=== PATIENT | female | born 1995 | race Caucasian/White ===

== ENCOUNTER 2016-10-12 23:48 | Emergency (ER) | payer OTHER ==
--- NOTE | ~2016-10-12 | CR63 ---
[facility] A Service of [facility] & [facility] RADIOLOGY TEXT RESULTS PATIENT: RIVAK CORDERO LOCATION: [facility] : 93 UNIT #: [id number] AGE: [address]: Annmarie Corbin MD SEX: F ORDER DR: [id number] [facility] [address] [facility]. [place], [place] [address] [id number] MR#: [id number] Acc #: [id number] NAME: RIVKA CORDERO : 1995 SEX: F STUDY DATE/TIME: 10/13/2016 1:19 UNIT: [facility] ROOM: STUDY DESCRIPTION: CR Chest 2 View Attending Physician: Annmarie Corbin M.D. Ordering Physician: Nikolas Jerez M.D. Primary Care Physician: Primary Care Physician No MEDICAL IMAGING REPORT This report is preliminary unless electronic signature is present EXAM Two-view chest INDICATIONS Chest pain for 1 day. FINDINGS 2 views of the chest compared to 05/31/2013. Heart and mediastinal contours are normal. Lungs are clear. No pleural effusion. IMPRESSION Negative chest radiograph. Dictated by... Rohan Crawley M.D. THIS IS AN ELECTRONICALLY VERIFIED REPORT Rohan Crawley M.D. at 10/13/2016 9:06 PM RPC/aaron TD: 10/13/2016 04:11 JOB #: [id number] MEDICAL IMAGING REPORT Page 1 of 1 COPY
[~2016-10-12 23:48] MED LIST: AMOXICILLIN500 M1 PO; AZO CRANBERRY450 M1; BACTRIM DS TABL1 TA1 PO; CIPRO PO; DEPO-PROVER150 MG/M1; DICLOFENAC PO; FLEXERIL PO; IBUPROFEN PO; IBUPROFEN800 MG PO; LORTAB 5/500 TA1 TA1 PO; NO MEDICATIONS; PYRIDIUM PO; PYRIDIUM100 MG PO; VOLTAREN75 MG PO
[2016-10-13 02:12] LABS: POC - CKMB 1.5 ng/mL (0.0-7.9); POC - TROPONIN <0.05 ng/mL (<=0.05)
[2016-10-13 02:13] LABS: BASOPHIL% 0.7 % (0-2.5); EOSINOPHIL# 0.1 X10e3 (0-0.7); EOSINOPHIL% 1.7 % (0.0-7.0); HEMATOCRIT 44.1 % (35.0-45.0); HEMOGLOBIN 15.1 gm/dL (12.0-16.0); LYMPHOCYTE# 2.2 X10e3 (1.0-3.5); LYMPHOCYTE% 35.1 % (17.0-45.0); MEAN CELL VOLUME 92.6 FL (83-96); MEAN CORPUSCULAR HEMOGLOBIN 31.6 PG (28-34); MEAN CORPUSCULAR HGB CONC 34.2 g/dL (30-36); MEAN PLATELET VOLUME 8.6 FL (6.5-11.5); MONOCYTE# 0.6 X10e3 (0-1.0); NEUTROPHIL# 3.3 X10e3 (1.5-7.1); NEUTROPHIL% 53.5 % (40-75); PLATELET COUNT 167 X10e3 (140-420); RED BLOOD COUNT 4.77 X10e (3.90-5.30); RED CELL DISTRIBUTION WIDTH 12.9 % (11.0-15.5); WHITE BLOOD COUNT 6.1 X10e3 (4.0-10.5)
[2016-10-13 02:14] LABS: DIFF IND NO
[2016-10-13 02:32] LABS: AMPHETAMINE POS (NEG); BARBITURATES NEG (NEG); BENZODIAZEPINES NEG (NEG); COCAINE NEG (NEG); MARIJUANA NEG (NEG); OPIATES POS (NEG); TRICYCLIC ANTIDEPRESSANTS NEG (NEG); U METHADONE NEG (NEG)
[2016-10-13 02:38] LABS: ALCOHOL BLOOD <5 mg/dL (0); BLOOD UREA NITROGEN 10 mg/dL (9-23); BUN/CREATININE RATIO 16.66; CALCIUM SERUM 9.4 mg/dL (8.4-10.2); CARBON DIOXIDE 28 mmol/L (22-31); CHLORIDE 103 mmol/L (100-111); CREATININE SERUM 0.6 mg/dL (0.6-1.4); GLOM FILT RATE Estimated 128.5 mL/min (>60); GLUCOSE FASTING 85 mg/dL (70-110); POTASSIUM 3.6 mmol/L (3.5-5.1); SODIUM 137 mmol/L (135-145)
== END 2016-10-13 07:40 | disposition home or self-care (01) ==
LOC: CED 23:48
PROVIDERS: Emergency Medicine
DX: F11.129 Opioid abuse with intoxication, unspecified (principal); S20.212A Contusion of left front wall of thorax, initial encounter; F17.200 Nicotine dependence, unspecified, uncomplicated; X58.XXXA Exposure to other specified factors, initial encounter; Y92.9 Unspecified place or not applicable
CPT/HCPCS: 71020; 80048; 80307; 82553; 84484; 84703; 85025; 99283; G0480

== ENCOUNTER 2017-01-04 01:25 | Inpatient (IN) | payer OTHER ==
[~2017-01-04] VITALS: Ht 162.6 cm; Wt 62.0 kg
--- NOTE | ~2017-01-04 | CO ---
Unit #: [id number] #: [id number] Patient: RIVKA CORDERO [id number] [facility] [address] [facility] [address]. [place], [place] [address] [id number] I MR#: [id number] NAME: RIVKA CORDERO ROOM: 241 Age: 21 Sex: F Admission Date: 01/04/2017 : 1995 Attending Physician: Mervat Javier M.D. Primary Care Physician: Primary Care Physician No Consultation Date: 01/10/2017 CONSULTATION REPORT REASON FOR CONSULTATION Followup. DISCUSSION Ms. Bahena is a 21-year-old female, seen in room 241, bed 1, on 01/10/2017 at [facility]. The patient dressed casually, lying comfortably in bed. The patient has a chest tube placed on Wednesday and reports that she is still having lot of pain and unable to sleep last night. The patient was, however, more cooperative. The patient has a sitter. The patient denied any suicidal or homicidal ideation. Denied any psychotic symptom. The patient's vital signs; temperature 98.4, pulse 78, respirations 18, blood pressure 116/69, oxygen saturation 99%. REVIEW OF SYSTEMS Complete review of systems unremarkable except as mentioned above. MENTAL STATUS EXAMINATION General appearance; the patient dressed casually, lying comfortably in bed, seemed somewhat anxious, in pain. Attention span and concentration, fair. Speech, regular rate and coherent. Oriented in time, place, and person. Mood and affect were sad, dysphoric, anxious, but able to smile. Thought process, coherent. Thought content, the patient denied any thoughts of harming self or others or any psychotic symptom. Recent and remote memory, fair. Language, intact. Fund of knowledge, fair. Insight and judgment, fair to slightly impaired. DIAGNOSES Psychiatric: Opioid use disorder, severe, F11.20; amphetamine use disorder, severe, F15.20; major depressive disorder, recurrent, severe, F33.2. ASSESSMENT AND PLAN 1. Supportive psychotherapy and psychoeducation provided to the patient. 2. Educated about benefits and side effects of medication and course and prognosis of illness. 3. Advised to continue with current combination of medication. If needed, we will make further adjustment. Please feel free to call if any question, telephone #[phone]. Dictated by... David Rubin M.D. Unit #: [id number] #: [id number] Patient: RIVKA CORDERO YUE/shantel TD: 01/10/2017 23:03 JOB #: [id number] CONSULTATION REPORT Page 1 of 1 X David Rubin MD CONSULTATION REPORT
--- NOTE | ~2017-01-04 | HP ---
Unit #: [id number] #: [id number] Patient: RIVKA CORDERO [id number] [address] [place], [place] [address] [id number] I MR#: [id number] NAME: RIVKA CORDERO ROOM: 46 Age: 21 Sex: F Admission Date: 01/04/2017 : 1995 Attending Physician: Samira Brennan M.D. Primary Care Physician: No Primary Care Physician HISTORY AND PHYSICAL CHIEF COMPLAINT Back pain. HISTORY OF PRESENT ILLNESS 21-year-old with a history of IV drug abuse, admitted because of back pain. Mostly, the back pain is in the right lower area in the back. It started a few weeks prior to admission but suddenly got worse since yesterday, one day prior to the admission, according to her. Patient is a very poor historian, noncooperative. Most of the history taken from her grandmother who is at bedside and also from ER physician chart. No injury. Pain gets worse with deep breathing. No fever, no vomiting, no pain during urination. She did admit that she is using IV heroin. Last usage was one day prior to the admission. PAST MEDICAL HISTORY Frequent urinary tract infections. ALLERGIES None. MEDICATIONS None. SOCIAL HISTORY Smokes one pack of cigarettes per day. Uses IV heroin and meth. No alcohol. FAMILY HISTORY Positive for hypertension. PAST SURGICAL HISTORY None. REVIEW OF SYSTEMS No sore throat, no chest pain, no cough, no shortness of breath. Patient is very noncooperative. Tried to ask her other systems but she is noncooperative. PHYSICAL EXAMINATION Please note - patient is noncooperative. HEENT: Dry mucosa present. No pallor, no icterus. NECK: Supple. HEART: S1, S2 heard. Tachycardia present. LUNGS: Clear to auscultation. Unit #: [id number] #: [id number] Patient: RIVKA CORDERO ABDOMEN: Soft. Tender in the right flank area. Voluntary guarding present. EXTREMITIES: No pedal edema. SKIN: No rash. She did not cooperate for me to check skin for any IV tracks. NEUROLOGICAL: Noncooperative but moving all extremities. Nonfocal. DIAGNOSTIC STUDIES LABORATORY DATA: Urinalysis shows WBC 100-200, 4+ bacteria, 2+ leukocyte esterase. Urine drug screen positive for amphetamines and opiates. WBC 10.2, hemoglobin 13.2, platelets 166, sodium 137, potassium 4.2, creatinine 0.9. AST 102, ALT 174, alkaline phosphatase 90, total bilirubin 0.9, INR 1.0, lactic acid 1.1. IMAGING: CT angio of chest shows no aortic dissection. Nondiagnostic for evaluation for PE. Trace right pleural effusion present. Dense consolidation in right lower lobe which is multifocal, probably pneumonia versus septic emboli. ASSESSMENT AND PLAN 21-year-old admitted because of back pain: 1. Sepsis, likely from pyelonephritis and urinary tract infection present on admission: Started on IV antibiotics. Blood cultures. Will repeat lactic acid. Please note that patient is refusing to draw any kind of blood. 2. Urinary tract infection with acute pyelonephritis: Infectious disease has been contacted. Continue with urine cultures, blood cultures, IV antibiotics. 3. Transaminitis, most likely from the IV drug abuse: Check acute hepatitis panel and HIV panel. 4. Multifocal pneumonia versus septic emboli, mostly on the right lower lobe. Continue with IV antibiotics and send sputum cultures. 5. Polysubstance abuse with IV drug abuse with IV heroin and meth: Advised to quit. 6. Patient might need a CHASITY. I am going to ask cardiology to see. Await for blood cultures. Bilateral SCDs for DVT prophylaxis. Protonix 40 p.o. daily for GI prophylaxis. Dictated by Iglesia Webb/delon TD: 01/04/2017 11:33 JOB #: [id number] Unit #: [id number] #: [id number] Patient: CORDERO,RIVKA HISTORY AND PHYSICAL Page 1 of 1 X Samira Brennan MD X HISTORY AND PHYSICAL
--- NOTE | ~2017-01-04 | CR72 ---
[facility] A Service of [facility] & [facility] RADIOLOGY TEXT RESULTS PATIENT: RIVKA CORDERO LOCATION: C2A 241-01 : [birth year] UNIT #: [id number] AGE: [address]: Mervat Javier MD SEX: F ORDER DR: [id number] [facility] [address] [place], [place] [address] [id number] I MR#: [id number] Acc #: [id number] NAME: RIVKA CORDERO : 1995 SEX: F STUDY DATE/TIME: 01/15/2017 6:00 UNIT: [facility] ROOM: [facility] STUDY DESCRIPTION: CR Chest Single View Portable Attending Physician: Mervat Javier M.D. Ordering Physician: Mervat Javier M.D. Primary Care Physician: No Primary Care Physician MEDICAL IMAGING REPORT This report is preliminary unless electronic signature is present EXAM Single view chest INDICATIONS Shortness of air. Right chest tube placement. COMPARISON STUDIES Single portable AP view chest compared 01/14/2017. FINDINGS Small right pneumothorax is unchanged. There is a right IJ central line. Heart mediastinal contours normal. Minimal linear airspace opacity near the pneumothorax is unchanged. IMPRESSION Small right basilar pneumothorax is unchanged Dictated by... Rohan Crawley M.D. THIS IS AN ELECTRONICALLY VERIFIED REPORT Rohan Crawley M.D. at 01/15/2017 2:52 PM OZZIE/marleny TD: 01/15/2017 14:42 JOB #: [id number] MEDICAL IMAGING REPORT Page 1 of 1 COPY
--- NOTE | ~2017-01-04 | CR72 ---
[facility] A Service of [facility] RADIOLOGY TEXT RESULTS PATIENT: RIVKA CORDERO LOCATION: A 241-01 : [birth year] UNIT #: [id number] AGE: [address]: Samira Brennan MD SEX: F ORDER DR: [id number] [facility] [address] [facility]. [place], [place] [address] [id number] I MR#: [id number] Acc #: [id number] NAME: RIVKA CORDERO : 1995 SEX: F STUDY DATE/TIME: 01/10/2017 4:03 UNIT: [facility] ROOM: [facility] STUDY DESCRIPTION: CR Chest Single View Portable Attending Physician: Samira Brennan M.D. Ordering Physician: Tammi Duarte A.P.R.N. Primary Care Physician: Primary Care Physician No MEDICAL IMAGING REPORT This report is preliminary unless electronic signature is present EXAM Chest x-ray, 01/10/2017 HISTORY Chest tube. Followup pleural effusion. TECHNIQUE AP portable chest x-ray. FINDINGS Chest tube remains in place in the peripheral right lung base. Right pleural effusion has decreased significantly in size since yesterday, although a small pneumothorax component is now visible along the lateral aspect of the right mid and lower lung. There is persistent right lung base volume loss with elevation of the right hemidiaphragm and plate-like right basilar atelectasis. Probable tiny left pleural effusion. Lungs otherwise clear. Right IJ central line tip in the low SVC. Heart size normal. IMPRESSION 1. Decreased right pleural effusion with newly visible small pneumothorax component as noted. Right basilar chest tube remains in place. 2. Right lung volume loss with elevation right hemidiaphragm. Dictated by... Jw Suarez M.D. THIS IS AN ELECTRONICALLY VERIFIED REPORT Jw Suarez M.D. at 01/10/2017 9:53 PM Monet TD: 01/10/2017 10:04 [facility] A Service of [facility] RADIOLOGY TEXT RESULTS PATIENT: RIVKA CORDERO LOCATION: [facility] 241-01 : [birth year] UNIT #: [id number] AGE: [address]: Samira Brennan MD SEX: F ORDER DR: JOB #: [id number] MEDICAL IMAGING REPORT Page 1 of 1 COPY
--- NOTE | ~2017-01-04 | CO ---
Unit #: [id number] #: [id number] Patient: RIVKA CORDERO [id number] [facility] [address] [facility] [address] [facility]. [place], [place] [address] [id number] I MR#: [id number] NAME: RIVKA CORDERO ROOM: 241 Age: 21 Sex: F Admission Date: 01/04/2017 : 1995 Attending Physician: Mervat Javier M.D. Primary Care Physician: Primary Care Physician No Consultation Date: 01/12/2017 CONSULTATION REPORT REASON FOR CONSULTATION Followup. DISCUSSION Ms. Bahena is a 21-year-old female, seen in room 241, bed 1, on 01/12/[address] [facility]. The patient has a right chest tube receiving IV fluids. Reported having lot of pain. Sad, depressed, withdrawn. The patient's one-to-one monitoring was discontinued. The patient reports medication is helping her, but still having lot of above-mentioned symptom, but denied any suicidal or homicidal ideation. Denied any psychotic symptom. The patient's vital signs are stable. REVIEW OF SYSTEMS Complete review of systems is unremarkable. MENTAL STATUS EXAMINATION General appearance, the patient dressed in hospital attire. Attention span and concentration, fair. Speech, slow in volume. Oriented in place and person. Mood and affect, sad, and depressed. Thought process, coherent. Thought content, the patient denied any thoughts of harming self or others or any hallucination. Recent and remote memory, fair. Language, intact. Fund of knowledge, fair. Insight and judgment, fair to slightly impaired. DIAGNOSES Psychiatric: Opioid use disorder, severe, F11.20; amphetamine use disorder, severe, F15.20; major depressive disorder, recurrent, severe, F33.2. ASSESSMENT AND PLAN 1. Supportive psychotherapy and psychoeducation provided to the patient. 2. Educated about benefits and side effects of medication and course and prognosis of illness. 3. Advised to continue with current medication. If needed, consider further adjustment of medication. Please feel free to call if any questions, telephone #[phone]. Dictated by... David Rubin M.D. YUE/shantel Unit #: [id number] #: [id number] Patient: RIVKA CORDERO TD: 01/12/2017 18:13 JOB #: [id number] CONSULTATION REPORT Page 1 of 1 X David Rubin MD CONSULTATION REPORT
--- NOTE | ~2017-01-04 | CO ---
Unit #: [id number] #: [id number] Patient: RIVKA CORDERO 198856 [facility] [address] [place], [place] [address] [id number] I MR#: [id number] NAME: RIVKA CORDERO ROOM: 241 Age: 21 Sex: F Admission Date: 01/04/2017 : 1995 Attending Physician: Samira Brennan M.D. Primary Care Physician: Primary Care Physician No Consultation Date: 01/07/2017 CONSULTATION REPORT REASON FOR CONSULTATION Followup. DISCUSSION Ms. Bahena is a 21-year-old female, seen in room 241, bed 1 on 01/07/2017 at [facility]. The patient was compliant, cooperative. Mood is sad, dysphoric, flat affect. The patient reports that she does not like to have a sitter. The patient apparently used drugs while she was in ICU, subsequently sitter was placed for precautions. The patient was using medication on her own. The patient's vital signs; temperature 98.4, pulse 74, respirations 17, blood pressure 114/74, oxygen saturation 96%. Reports medication is helping her. The patient reports that currently waiting for ID final result. The patient's echo showed no endocarditis. worker's compensation claims examiner is currently working on plan to return home with her mother unless the patient is agreeable to drug rehab program. The patient currently denied any suicidal or homicidal ideation. Denied any psychotic symptom. REVIEW OF SYSTEMS Complete review of systems unremarkable except as mentioned above. MENTAL STATUS EXAMINATION Vital signs; please see above. General appearance; the patient is dressed casually in the hospital attire. Attention span and concentration, fair. Speech, regular rate. Attention span and concentration, fair. Oriented in time, place, and person. Mood and affect, sad, and depressed. Thought process was coherent. Thought content, the patient denied any thoughts of harming self or others or any psychotic symptom. Language, intact. Fund of knowledge, fair. Insight and judgment, fair to slightly impaired. DIAGNOSES Psychiatric: Opioid use disorder, severe, F11.20; amphetamine use disorder, severe, F15.20; major depressive disorder, recurrent, severe, F33.2. ASSESSMENT/PLAN 1. Supportive psychotherapy and psychoeducation were provided to the patient. 2. Educated about benefits and side effects of medication and course and prognosis of illness. 3. Advised to continue with current combination of medication and make further adjustment of medication if needed. Continue with the sitter at this time for safety because of the patient's above-mentioned behavior. Unit #: [id number] #: [id number] Patient: RIVKA CORDERO Dictated by... Iglesia Mcdonald/shantel TD: 01/08/2017 00:10 JOB #: [id number] CONSULTATION REPORT Page 1 of 1 X David Rubin MD X CONSULTATION REPORT
--- NOTE | ~2017-01-04 | OR ---
Unit #: [id number] #: [id number] Patient: RIVKA CORDERO [id number] [address] [address] [id number] I MR#: [id number] NAME: RIVKA CORDERO ROOM: [facility] Date of Procedure: 01/08/2017 Admission Date: 01/04/2017 Surgeon: Rafal English M.D. : 1995 Attending Physician: Samira Brennan M.D. OPERATIVE REPORT PREOPERATIVE DIAGNOSIS Right pleural effusion. POSTOPERATIVE DIAGNOSIS Right pleural effusion. PROCEDURE PERFORMED Insertion of a #28 trocar right chest tube. ANESTHESIA Local 1% Xylocaine. ESTIMATED BLOOD LOSS About 3 mL. COMPLICATIONS None. DESCRIPTION OF PROCEDURE The patient was left in her hospital bed and placed in a left lateral decubitus position. The right lateral chest was prepped with ChloraPrep and draped in a sterile fashion. After adequate anesthesia had been obtained using local 1% Xylocaine, a small transverse skin incision was made just slightly below the sixth intercostal space. A Tonsil clamp was used to spread the subcutaneous tissue and muscle and fascial layers with the right pleural space being entered. A #28 trocar chest tube was then passed along this tract into the pleural space. The chest tube was secured in place using 2-0 silk suture. Some of the fluid that was drained was sent for cytology as well as cultures. The fluid had a somewhat cloudy appearance. The chest tube was then connected to a Pleur-evac. A cut 4x4 was placed around the chest tube and it was secured in place with 2-inch silk tape. Estimated blood loss in the procedure was about 3 mL. Sponge and needle counts in the operation were correct. The patient tolerated the procedure well. Dictated by... Rafal English M.D. RGB/modl Unit #: [id number] #: [id number] Patient: RIVKA CORDERO TD: 01/09/2017 00:16 JOB #: [id number] OPERATIVE REPORT Page 1 of 1 X Rafal English MD X PROCEDURE OPERATIVE NOTE
--- NOTE | ~2017-01-04 | CO ---
Unit #: [id number] #: [id number] Patient: RIVKA CORDERO [id number] [facility] [address] [facility] [address] [facility]. [place], [place] [address] [id number] I MR#: [id number] NAME: RIVKA CORDERO ROOM: 241 Age: 21 Sex: F Admission Date: 01/04/2017 : 1995 Attending Physician: Mervat Javier M.D. Consultation Date: 01/13/2017 CONSULTATION REPORT REASON FOR CONSULTATION Followup. DISCUSSION Ms. Shruti Cordero is a 21-year-old female, seen in room 241 bed 1 on 01/13/2017 at [facility]. The patient was lying comfortably in bed, reported still in pain, reported mood is better. The patient dressed casually in hospital attire, lying in a propped up position. The patient was able to answer question coherently. Denied any suicidal or homicidal ideation. Denied any psychotic symptom. Vital signs; temperature 98.7, pulse 113, respirations 15, blood pressure 91/49, and oxygen saturation 100%. REVIEW OF SYSTEMS Complete review of systems unremarkable. MENTAL STATUS EXAMINATION General appearance; the patient dressed casually, lying comfortably in bed. Attention span and concentration, fair. Speech, regular rate and coherent. Oriented in time, place, and person. Mood and affect, labile, but able to smile. Thought process, coherent. Thought content, the patient denied any thoughts of harming self or others. Recent and remote memory, fair. Language, intact. Fund of knowledge, fair. Insight and judgment, fair to slightly impaired. DIAGNOSES Psychiatric: Opioid use disorder, severe, F11.20; major depressive disorder, recurrent, severe, F33.2. ASSESSMENT/PLAN 1. Supportive psychotherapy and psychoeducation provided to the patient. 2. Educated about benefits and side effects of medication and course and prognosis of illness. 3. Advised to continue with current medication. If needed, consider further adjustment of medication. Please feel free to call if any questions telephone #[phone]. Dictated by... David Rubin M.D. YUE/shantel TD: 01/13/2017 23:06 Unit #: [id number] #: [id number] Patient: RIVKA CORDERO JOB #: [id number] CONSULTATION REPORT Page 1 of 1 X David Rubin MD CONSULTATION REPORT
--- NOTE | ~2017-01-04 | CR72 ---
[facility] A Service of [facility] RADIOLOGY TEXT RESULTS PATIENT: RIVKA CORDERO LOCATION: [facility] : [birth year] UNIT #: [id number] AGE: [address]: Samira Brennan MD SEX: F ORDER DR: [id number] [facility] [address] [facility]. [place], [place] [address] [id number] I MR#: [id number] Acc #: [id number] NAME: RIVKA CORDERO : 1995 SEX: F STUDY DATE/TIME: 01/09/2017 4:23 UNIT: [facility] ROOM: [facility] STUDY DESCRIPTION: CR Chest Single View Portable Attending Physician: Samira Brennan M.D. Ordering Physician: Rafal English M.D. Primary Care Physician: No Primary Care Physician MEDICAL IMAGING REPORT This report is preliminary unless electronic signature is present EXAM Chest x-ray, 01/09/2017. HISTORY Chest tube placement. Pleural effusion. Follow up exam. TECHNIQUE AP portable chest x-ray. FINDINGS Chest tube tip is in the peripheral right lung base. Moderately large and loculated right pleural effusion has not changed significantly in size since yesterday, but associated loculated pleural air has clearly decreased. Dense airspace consolidation and volume loss in the right lower lung. Right upper lung and left lung are clear. Heart size normal. Right IJ central line tip in the low SVC. IMPRESSION Decreasing extrapulmonary air following chest tube placement. Persistent loculated large right pleural effusion. Chest tube tip is in the peripheral right lung base. Dictated by... Jw Suarez M.D. THIS IS AN ELECTRONICALLY VERIFIED REPORT Jw Suarez M.D. at 01/09/2017 3:54 PM RGW/vadimw TD: 01/09/2017 12:50 JOB #: [id number] [facility] A Service of [facility] RADIOLOGY TEXT RESULTS PATIENT: RIVKA CORDERO LOCATION: [place] [address]-01 : [birth year] UNIT #: [id number] AGE: [address]: Samira Brennan MD SEX: F ORDER DR: MEDICAL IMAGING REPORT Page 1 of 1 COPY
--- NOTE | ~2017-01-04 | CO ---
Unit #: [id number] #: [id number] Patient: RIVKA CORDERO [id number] [facility] [address] [facility]. [place], [place] [address] [id number] I MR#: [id number] NAME: RIVKA CORDERO ROOM: 241 Age: 21 Sex: F Admission Date: 01/04/2017 : 1995 Attending Physician: Mervat Javier M.D. Primary Care Physician: Primary Care Physician No Consultation Date: 01/11/2017 CONSULTATION REPORT DISCUSSION Ms. Shruti Cordero is a 21-year-old female, seen on 01/11/2017 in room 241 bed 1 on 01/11/2017 at [facility]. The patient has a sitter, compliant and cooperative. Reports still having trouble sleep and pain. The patient has a chest tube placed recently. The patient's vital signs; temperature 98.7, pulse 93, respirations 16, blood pressure 115/64, and oxygen saturation 99%. The patient currently denied any suicidal or homicidal ideation. Reports medication helping, but still having trouble with sleep and pain. REVIEW OF SYSTEMS Complete review of systems unremarkable. MENTAL STATUS EXAMINATION General appearance, the patient dressed casually. Attention span and concentration, fair. Oriented in time, place, and person. Mood and affect; sad, dysphoric, labile. Thought process was coherent. Thought content, the patient denied any thoughts of harming self or others. Recent and remote memory, fair. Language, intact. Fund of knowledge, fair. Insight and judgment, fair to slightly impaired. DIAGNOSES Psychiatric: Opioid use disorder, severe, F11.20; amphetamine use disorder, severe, F15.20; major depressive disorder, recurrent, severe, F33.2. ASSESSMENT AND PLAN 1. Supportive psychotherapy and psychoeducation provided to the patient. 2. Educated about benefits and side effects of medication and course and prognosis of illness. 3. Advised to continue with current combination of medication. If needed, consider further adjustment of medication. Dictated by... David Rubin M.D. YUE/shantel TD: 01/11/2017 18:00 JOB #: [id number] Unit #: [id number] #: [id number] Patient: RIVKA CORDERO CONSULTATION REPORT Page 1 of 1 X David Rubin MD CONSULTATION REPORT
--- NOTE | ~2017-01-04 | CR72 ---
[facility] A Service of [facility] RADIOLOGY TEXT RESULTS PATIENT: RIVKA CORDERO LOCATION: C2A 241-01 : [birth year] UNIT #: [id number] AGE: [address]: Mervat Javier MD SEX: F ORDER DR: [id number] [facility] [address] [place], [place] [address] [id number] I MR#: [id number] Acc #: [id number] NAME: RIVKA CORDERO : 1995 SEX: F STUDY DATE/TIME: 01/14/2017 13:21 UNIT: A ROOM: 241 STUDY DESCRIPTION: CR Chest Single View Portable Attending Physician: Mervat Javier M.D. Ordering Physician: Mervat Javier M.D. Primary Care Physician: No Primary Care Physician MEDICAL IMAGING REPORT This report is preliminary unless electronic signature is present EXAM Chest, portable; 01/14/2017, 1321 hours. CLINICAL HISTORY Shortness of air, right chest tube removed today. FINDINGS Portable upright chest demonstrates right IJ catheter tip in the right atrium unchanged. The right lateral basal chest tube has been removed. There is a stable small right lateral basal pneumothorax with linear atelectasis or scar at the right base. IMPRESSION 1. Interval removal of right chest tube with stable right lateral basal pneumothorax and linear right basilar density. 2. Lungs are otherwise clear. 3. Stable right IJ catheter with tip in right atrium. Dictated by... Ximena Jameson M.D. THIS IS AN ELECTRONICALLY VERIFIED REPORT Ximena Jameson M.D. at 01/15/2017 9:08 AM KERVIN/domenic TD: 01/14/2017 18:05 JOB #: [id number] MEDICAL IMAGING REPORT Page 1 of 1 COPY
--- NOTE | ~2017-01-04 | TOC ---
Unit #: [id number] #: [id number] Patient: RIVKA CORDERO [id number] [address] [place], [place] [address] [id number] I MR#: [id number] NAME: RIVKA CORDERO ROOM: 241 Age: 21 Sex: F Admission Date: 01/04/2017 : 1995 Attending Physician: Samira Brennan M.D. Primary Care Physician: No Primary Care Physician TRANSFER OF CARE SUMMARY DISCHARGE DIAGNOSES 1. Severe sepsis. 2. Right lower lobe pneumonia. 3. Right-sided ysxjnnvd-jp-sgcizo loculated pleural effusion, currently having chest tube. 4. Escherichia coli urinary tract infection. 5. Hepatitis C positive on acute hepatitis panel. 6. Anemia, likely iron deficiency. 7. Severe protein malnutrition. 8. Hypokalemia. 9. Hypocalcemia. 10. Acute pyelonephritis. 11. Opiate use disorder, severe. 12. Amphetamine usage. 13. Major depression. CONSULTATIONS 1. Dr. English. 2. Dr. Rubin. 3. Dr. Flory Novoa. PROCEDURES The patient had insertion of right chest tube on January 08, 2017. DIAGNOSTIC TESTING IMAGING: Chest x-ray shows decreasing extrapulmonary air following the chest tube. Persistent loculated large right pleural effusion present. CT of the abdomen and pelvis shows moderate sized right pleural effusion. CURRENT LAB DATA: Blood cultures negative. Acute hepatitis panel shows hepatitis C. Sodium 140, potassium 3.3, creatinine 0.8. WBC 5.7, hemoglobin 10.2, platelets 226. Urine culture is growing E-coli. HOSPITALIZATION COURSE A 21 year old admitted because of back pain. Sepsis likely from acute pyelonephritis, E-coli urinary tract infection. The patient received IV antibiotics. Currently antibiotics have been adjusted by infectious disease. Continue antibiotics per them. Right-sided pneumonia with moderate loculated pleural effusion. Currently having chest tube. Dr. English is closely following. Unit #: [id number] #: [id number] Patient: RIVKA CORDERO Hepatitis C with transaminitis. Hepatitis C positive. Polysubstance abuse with IV heroin usage and methamphetamine usage. Major depression. Jnotdglz-ya-ndxzkj protein malnutrition. 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 Anemia. Likely iron deficiency. Electrolyte imbalance. Replaced per protocol. Continue monitoring chest tube. Treatment as per Dr. English. Dictated by... Iglesia Webb TD: 01/10/2017 15:01 JOB #: [id number] TRANSFER OF CARE SUMMARY Page 1 of 1 X Samira Brennan MD TRANSFER OF CARE SUMMARY
--- NOTE | ~2017-01-04 | CO ---
Unit #: [id number] #: [id number] Patient: RIVKA CORDERO [id number] [facility] [address]. [place], [place] [address] [id number] I MR#: [id number] NAME: RIVKA CORDERO ROOM: 241 Age: 21 Sex: F Admission Date: 01/04/2017 : 1995 Attending Physician: Samira Brennan M.D. Primary Care Physician: No Primary Care Physician Consultation Date: 01/08/2017 CONSULTATION REPORT REASON FOR CONSULT Loculated right pleural effusion. HISTORY OF PRESENT ILLNESS Ms. Rivka Cordero is a 21-year-old female who presented to [facility] on 01/04/17 with complaint of right flank pain rated a 10 out of 0 to 10 scale. She was found to have E-coli in her urine, as well as a right pneumonia that was evolving into a loculated right pleural effusion. A CT of the chest on 01/04/17 revealed the above. She underwent a CAT scan of the abdomen and pelvis on 01/06/17, which showed an increase in the pleural effusion with consolidation of the right lower lobe and atelectasis. She complained of a nonproductive cough for approximately 3 days. She had a temperature of 98.8. She denied night sweats, weight loss or shortness of air. Since she has been at [facility], she was maintained on antibiotic therapy. She is a known IV drug user with heroin and meth with her last use approximately 5 days ago. She was initially in the intensive care unit and was caught attempting to use methamphetamine in the ICU. She was then put in room 241 at that point with a sitter. On interview, she is angry, and she wants to go outside unattended, and primary team has restricted her activity, which is appropriate. Dr. Rubin of psychiatric service is at the bedside evaluating the patient, as well. PAST MEDICAL HISTORY She has IV drug use with meth and heroin. She has no other past medical history, to include no coronary artery disease, no DVT or PE. She denies any stroke, COPD, asthma or any childhood illness. PAST SURGICAL HISTORY She denies any past surgeries. SOCIAL HISTORY She smokes 1 pack of cigarettes per day and has for 12 years. She has used IV drugs for approximately 4 years, and she lives with family. REVIEW OF SYSTEMS Positive for the above-mentioned symptoms in HPI, and a 14-point review has been completed. PHYSICAL EXAMINATION Unit #: [id number] #: [id number] Patient: RIVKA CORDERO VITAL SIGNS: Her temperature is 98.8. Her heart rate is 84. Her respiratory rate is 20. Her blood pressure is 115/33. GENERAL APPEARANCE: She is a well-groomed 21-year-old female, well nourished, who is a good historian regarding her own medical history. NEUROLOGIC/PSYCHIATRIC: Cranial nerves II-XII are intact. Her speech is appropriate and clear. She is angry and wants to leave. HEENT: Normocephalic. No facial asymmetry. Sclera anicteric. NECK: Her neck is supple. Trachea midline. She has a right IJ catheter, central line in place without any inflammation or fluctuance. RESPIRATORY: Her lungs are decreased in the bases bilaterally with a few rhonchi. CARDIOVASCULAR: S1, S2 without rub, without murmur. No S3, S4. No peripheral edema. ABDOMEN: Her abdomen is round, soft. Bowel sounds positive. Nontender. No pulsatile masses or hepatosplenomegaly. EXTREMITIES: Extremities are warm and pink. No edema. No ulcers. She has multiple tattoos. DIAGNOSTICS CARDIOVASCULAR: She had an echocardiogram, which showed no evidence of vegetation. LABORATORY: BUN 6, creatinine 0.7, sodium 142, potassium 4. Hemoglobin was 11.4, hematocrit 34.2, WBC 7.7, platelets 200. IMAGING: CT of the chest, CT of the abdomen and pelvis both reviewed by Dr. English at the bedside. IMPRESSION 1. Right partially loculated pleural effusion. 2. Right lung consolidation. 3. E-coli in the urine, on antibiotic therapy. 4. IV drug use, heroin/meth. Last use approximately [address] English placed a No. 28 chest tube in the right pleural space. He had approximately 50 mL of fluid return, which was sent for cytology and bacterial AFB and fungal cultures. Additionally, the patient is to have Toradol 15 mg IV q.6 hours x24 hours. We discontinued her Hiltons. We discontinued her IV morphine. She has a morphine GROUP MANAGING DIRECTOR pump now. Lidoderm patch. We have discontinued her ibuprofen. We are giving her oxycodone 5 mg 1 or 2 tablets q.4 hours. A chest x-ray for tomorrow morning on January 09, 2017. Dictated by... Tammi Duarte A.P.R.N. for Iglesia Crowe/justyna TD: 01/09/2017 13:55 JOB #: [id number] Unit #: [id number] #: [id number] Patient: CONSUELORIVKA CONSULTATION REPORT Page 1 of 1 X Tammi Duarte APRN X CONSULTATION REPORT
--- NOTE | ~2017-01-04 | A ---
[facility] Nutrition Therapy DATE: 01/11/17 Patient: RIVKA CORDERO Physician: ALEX Address: [facility] Room/Bed: [address] [place] [address], Zip: [place] [address] Admit Date: 01/04/17 Date of : [birth year] Height: 5 4 Weight: 136 62 NUTRITIONAL ASSESSMENT: REASON: CONSULT RECEIVED PT IS 21 Y.O. FEMALE ADMITTED FOR BACK AND FLANK PAIN, PNA PMH: IV DRUG ABUSE, FREQUENT UTIs, DEPRESSION, POLYSUBSTANCE ABUSE, 1 PPD SMOKER Anthropometrics: 5'4", WT: 125# (56.8 KG), BMI: 21.5 Labs: BUN: 5, ALB: 2.2 Meds: KCL, NACL, THERAPEUTIC FORMULA, PROTONIX I/O & Bowel function: 4250/3819 Skin Integrity: NO KNOWN SKIN ISSUES Estimated Nutrition Needs: INCREASED NEEDS 2' CURRENT CLINICAL CONDITION Assessment: CHART REVIEWED AND EVENTS NOTED. PT SEEN FOR MD CONSULT. PT IS S/P CHEST TUBE PLACEMENT 2' PLUERAL EFFUSION. PT REPORTS GOOD PO INTAKE AND APPETITE, NOTING NO C/O N/V/D. PT DENIES ANY RECENT WEIGHT LOSS. PT REPORTS NOT LIKING FOOD HERE AT [facility], PT'S GRANDMA BRINGS FOOD FROM OUTSIDE. RD ENCOURAGED ADEQUATE KCAL AND PROTEIN INTAKE + HEALTHY FOOD OPTIONS, PT AGREED BUT REFUSED SUPPLEMENTS AT THIS TIME. RD TO FOLLOW. SEE RECOMMENDATIONS BELOW. Dx: ADEQUATE PROTEIN-ENERGY INTAKE R/T GOOD APPETITE AEB PT REPORT ABOVE. Intervention: 1. REGULAR DIET 2. RD CONSULT 3. RD ENCOURAGEMENT OF HEALTHY FOODS Monitoring, Evaluation and Goals: 1. ORAL INTAKE; CONSUME/TOLERATE >50% OF MEALS 2. WEIGHTS; MAINTAIN CURRENT WEIGHT STATUS; PREVENT WEIGHT LOSS 3. LABS; WNL (BUN) MONITOR: -PO INTAKE/APPETITE -WEIGHTS -LABS Recommendations: [facility] Nutrition Therapy DATE: 01/11/17 Patient: RIVKA CORDERO Physician: ALEX Address: [address] [place] [address] Room/Bed: [address] [place] [address], Zip: [place] [address] Admit Date: 01/04/17 Date of : [birth year] Height: 5 4 Weight: 136 62 1. CONTINUE TO ENCOURAGE ADEQUATE PO INTAKE 2. CONSIDER ADDING MVI/MINERAL TO PT'S CURRENT MEDICATION REGIMEN RD WILL F/U PER PROTOCOL PT IS MILDLY COMPROMISED Respectfully, ERIC SANDOVAL MS, RD, LD [employer] cc: client file
--- NOTE | ~2017-01-04 | US6 ---
[facility] A Service of [facility] RADIOLOGY TEXT RESULTS PATIENT: RIVKA CORDERO LOCATION: [place] [address] : [birth year] UNIT #: [id number] AGE: [address]: Samira Brennan MD SEX: F ORDER DR: [id number] [facility] [address]. [place], [place] [address] [id number] I MR#: [id number] Acc #: [id number] NAME: RIVKA CORDERO : 1995 SEX: F STUDY DATE/TIME: 01/05/2017 8:08 UNIT: [facility] ROOM: [facility] STUDY DESCRIPTION: US Abdominal Limited Attending Physician: Samira Brennan M.D. Ordering Physician: Jeff Novoa M.D. Primary Care Physician: No Primary Care Physician MEDICAL IMAGING REPORT This report is preliminary unless electronic signature is present EXAM Right upper quadrant ultrasound, 01/05/2017. HISTORY Right upper quadrant abdominal pain and back pain for 1 week. FINDINGS The liver is homogeneous in echotexture and demonstrates no cystic or solid mass lesions. The intra and extrahepatic bile ducts are not dilated. The gallbladder contains some minimal sludge but there is no evidence of cholelithiasis, gallbladder wall thickening, or pericholecystic fluid. The common duct measures 3 mm. The pancreas and right kidney are normal. There may be a small right pleural effusion. Preceding CT scan of the chest obtained 01/04/2017 demonstrated right lower lobe pneumonia. IMPRESSION 1. Gallbladder sludge. No evidence of cholelithiasis. 2. Small right pleural effusion. CT scan of the chest obtained 01/04/2017 demonstrated right lower lobe pneumonia. Dictated by... Mckay Juarez M.D. THIS IS AN ELECTRONICALLY VERIFIED REPORT Mckay Juarez M.D. at 01/06/2017 7:27 AM ROSARIO/inez TD: 01/05/2017 12:08 JOB #: [id number] [facility] A Service of [facility] RADIOLOGY TEXT RESULTS PATIENT: RIVKA CORDERO LOCATION: [place] [address]-01 : [birth year] UNIT #: [id number] AGE: [address]: Samira Brennan MD SEX: F ORDER DR: MEDICAL IMAGING REPORT Page 1 of 1 COPY
--- NOTE | ~2017-01-04 | DS ---
Unit #: [id number] #: [id number] Patient: RIVKA CORDERO [id number] [address] [place], [place] [address] [id number] I MR#: [id number] NAME: RIVKA CORDERO ROOM: 241 Age: 21 Sex: F Admission Date: 01/04/2017 : 1995 Discharge Date: 01/15/2017 Attending Physician: Mervat Javier M.D. DISCHARGE SUMMARY ADDENDUM TO TRANSFER OF CARE SUMMARY DISCHARGE DIAGNOSES (CONTINUED) 14. Hyperkalemia. 15. Right-sided complicated parapneumonia effusion, status post chest tube. 16. Moderate protein malnutrition. 17. IV drug use. 18. Tobaccoism. 19. Iron deficiency anemia. 20. Vitamin B12 deficiency. PROCEDURES (CONTINUED) 2. Removal of right-sided chest tube without complication. HOSPITAL COURSE (CONTINUED) Since last dictation, patient has continually done better. Cultures from her right pleural fluid have been negative. She has now been transitioned to oral Levaquin which she is tolerating well. Her chest tube was removed on January 14, and chest x-ray today does not reveal any abnormalities. She will be discharged home on oral antibiotics and close followup with Dr. English. I will note, patient did have some hyperkalemia, but this has resolved. The cause of hyperkalemia is unclear to me, though oral supplementation was discontinued. I will also note, patient is refusing inpatient drug rehab. She states she will check herself into [facility]. DISCHARGE CONDITION Stable. DISCHARGE STATUS Discharge to home. DISCHARGE MEDICATIONS 1. Ferrous gluconate 324 mg p.o. daily, 1 month given. 2. Levaquin 750 mg p.o. daily for 12 days beginning on January 16, 2017. 3. Vitamin B12 at 1000 mcg p.o. daily. 4. Mobic 15 mg p.o. daily, number given 20. DISCHARGE INSTRUCTIONS 1. Patient is instructed to follow a regular diet. Unit #: [id number] #: [id number] Patient: RIVKA CORDERO 2. She can increase her activity as tolerated. 3. She is to keep her right chest dressing in place for three days and then after that may remove and shower. FOLLOWUP 1. Patient has a followup appointment with Dr. English on January 21, 2017, at 2 p.m. She is supposed to have a chest x-ray before the appointment. 2. Patient should also follow up with [facility] as previously dictated. Time spent on discharge today 32 minutes. Dictated by... Mervat Javier M.D. LILA/ayad TD: 01/17/2017 16:45 JOB #: [id number] DISCHARGE SUMMARY Page 1 of 1 X Mervat Javier MD X DISCHARGE SUMMARY
--- NOTE | ~2017-01-04 | CR72 ---
[facility] A Service of [facility] RADIOLOGY TEXT RESULTS PATIENT: RIVKA CORDERO LOCATION: C2A : [birth year] UNIT #: [id number] AGE: [address]: Mervat Javier MD SEX: F ORDER DR: [id number] [facility] [address]. [place], [place] [address] [id number] I MR#: [id number] Acc #: [id number] NAME: RIVKA CORDERO : 1995 SEX: F STUDY DATE/TIME: 01/14/2017 6:04 UNIT: A ROOM: 241 STUDY DESCRIPTION: CR Chest Single View Portable Attending Physician: Mervat Javier M.D. Ordering Physician: Rafal English M.D. Primary Care Physician: No Primary Care Physician MEDICAL IMAGING REPORT This report is preliminary unless electronic signature is present EXAM Portable chest 01/14/2017 HISTORY 21-year-old female with shortness of air for 10 days. Chest tube evaluation. COMPARISON Chest 01/13/2017 FINDINGS Frontal chest demonstrates stable positioning of the right-sided chest tube. Small right pneumothorax is unchanged. Right IJ central venous catheter tip again projects over the right atrium. Right basilar atelectasis unchanged. Left lung clear. Heart size and mediastinum are stable. IMPRESSION 1. Right chest tube is unchanged in position. Small right-sided pneumothorax is unchanged. 2. Right basilar atelectasis. Dictated by... Kevin Almazan M.D. THIS IS AN ELECTRONICALLY VERIFIED REPORT Kevin Almazan M.D. at 01/15/2017 4:54 PM EMILIO/delon TD: 01/14/2017 08:22 JOB #: [id number] MEDICAL IMAGING REPORT [facility] A Service of [facility] RADIOLOGY TEXT RESULTS PATIENT: RIVKA CORDERO LOCATION: C2A : [birth year] UNIT #: [id number] AGE: [address]: Mervat Javier MD SEX: F ORDER DR: Page 1 of 1 COPY
--- NOTE | ~2017-01-04 | CO ---
Unit #: [id number] #: [id number] Patient: RIVKA CORDERO [id number] [address] [address] [id number] I MR#: [id number] NAME: RIVKA CORDERO ROOM: 241 Age: 21 Sex: F Admission Date: 01/04/2017 : 1995 Attending Physician: Samira Brennan M.D. Primary Care Physician: No Primary Care Physician Consultation Date: 01/06/2017 CONSULTATION REPORT REASON FOR CONSULTATION Opiate abuse, amphetamine abuse withdrawal. HISTORY OF PRESENT ILLNESS Ms. Brannon is a 21-year-old female seen in room 241 bed-1 on 01/06/17. Patient has a sitter, dressed casually in hospital attire, lying comfortably in bed. Patient reported that she may have made comment about harming herself but denied any current suicidal or homicidal ideation. Denied any psychotic symptom. Patient admitted to using amphetamine and heroin. Patient reported snorting it. Denied any use of any IV drug use. Reported feeling sad, depressed, anxious but denied any suicidal or homicidal ideation. The patient was last assessed at [facility] on 10/13/16. Patient has a history of previous treatment at [facility] and [facility] in 2012. Patient's vital signs - 98.0, 65, 16, 122/78. Oxygen saturation 100%. PAST PSYCHIATRIC HISTORY Remarkable for history of previous treatment at [facility] for substance abuse. History of abuse of opiates and amphetamine. History of depression. No history of any suicide attempt. MEDICAL HISTORY AND MEDICATION HISTORY History of frequent urinary tract infection. ALLERGIES No known drug allergies. HOME MEDICATIONS None. FAMILY HISTORY AND SOCIAL HISTORY The patient has a good support system. No history of any abuse. History of substance abuse as mentioned above. REVIEW OF SYSTEMS Complete review of systems unremarkable except as mentioned above. MENTAL STATUS EXAMINATION VITAL SIGNS: Please see above. GENERAL APPEARANCE: Patient dressed casually, lying comfortably in bed, dressed in hospital attire. Attention span and concentration fair. Speech - regular rate, coherent. Oriented in time, place and person. Mood and affect sad, dysphoric. Thought process coherent. Thought Unit #: [id number] #: [id number] Patient: RIVKA CORDERO content - patient denied any thoughts of harming self or others or any hallucination. Recent and remote memory fair. Language intact. Fund of knowledge fair. Insight and judgment fair to slightly impaired. DIAGNOSIS PSYCHIATRIC: 1. Opiate use disorder, severe - F11.20. 2. 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 3. Major depressive disorder, recurrent, severe - F33.2. SECONDARY DIAGNOSIS Deferred. MEDICAL DIAGNOSIS Please refer to H and P. STRESSORS Psychosocial stressor. ASSESSMENT/PLAN 1. Supportive psychotherapy and psychoeducation provided to patient. 2. Educated about benefits and side effects of medication and course and prognosis of illness. 3. Patient is currently on detox protocol. If needed, consider scheduled medication. We will continue to follow. Please feel free to call if any questions. Telephone number [phone]. Plan to stabilize patient and consider followup in [facility]IP program at [facility] upon discharge. Dictated by... David Rubin M.D. YUE/delon TD: 01/07/2017 07:28 JOB #: [id number] CONSULTATION REPORT Page 1 of 1 X David Rubin MD X CONSULTATION REPORT
--- NOTE | ~2017-01-04 | CO ---
Unit #: [id number] #: [id number] Patient: RIVKA CORDERO [id number] [facility] [address] [facility]. [place], [place] [address] [id number] I MR#: [id number] NAME: RIVKA CORDERO ROOM: 241 Age: 21 Sex: F Admission Date: 01/04/2017 : 1995 Attending Physician: Samira Brennan M.D. Consultation Date: 01/08/2017 CONSULTATION REPORT REASON FOR CONSULTATION Followup. DISCUSSION Ms. Brannon is a 21-year-old female, seen in room 241 bed 1 on 01/08/2017 at [facility]. The patient has a sitter, dressed casually, lying comfortably in bed. The patient was very mad, angry, upset, not able to go downstairs. The patient has a history of substance abuse while in the hospital. Therefore, she has a sitter for safety. The patient is allowed to go in the hallway, but not allowed to leave the hospital to go outside. The patient continues to have a lot of problem with her behavior on the unit, using profanity, oppositional behavior, defiant behavior towards nursing staff, not very cooperative with the treatment. The patient seen by cardiothoracic and possibly will be getting a chest tube. The patient has a right pleural effusion. The patient denied any thoughts of harming self or others. The patient's vital signs; temperature 98.4, pulse 79, respirations 18, blood pressure 119/67, and oxygen saturation 100%. REVIEW OF SYSTEMS Complete review of systems is unremarkable except as mentioned above. MENTAL STATUS EXAMINATION General appearance, the patient dressed casually, lying comfortably in bed. Attention span and concentration, poor. Speech, slow in volume, but rapid in rate. Oriented in time, place, and person. Mood and affect, labile. Thought process, coherent. Thought content, the patient denied any thoughts of harming self or others, but mood lability. Recent and remote memory, fair. Language, intact. Fund of knowledge, fair. Insight and judgment, fair to slightly impaired. DIAGNOSES Psychiatric: Opioid use disorder, severe, F11.20; amphetamine use disorder, severe, F15.20; major depressive disorder, recurrent, severe, F33.2. ASSESSMENT AND PLAN 1. Supportive psychotherapy and psychoeducation provided to the patient. 2. Educated about benefits and side effects of medication and course and prognosis of illness. 3. Advised to continue with current combination of medication and make further adjustment of medication. If needed, we will continue to follow. Unit #: [id number] #: [id number] Patient: RIVKA CORDERO Dictated by... Iglesia Mcdonald/shantel TD: 01/09/2017 18:47 JOB #: [id number] CONSULTATION REPORT Page 1 of 1 X David Rubin MD X CONSULTATION REPORT
--- NOTE | ~2017-01-04 | CR72 ---
[facility] A Service of [facility] & [facility] RADIOLOGY TEXT RESULTS PATIENT: RIVKA CORDERO LOCATION: [place] [address] : [birth year] UNIT #: [id number] AGE: [address]: Samira Brennan MD SEX: F ORDER DR: [id number] [facility] [address] [facility]. [place], [place] [address] [id number] I MR#: [id number] Acc #: [id number] NAME: RIVKA CORDERO : 1995 SEX: F STUDY DATE/TIME: 01/04/2017 19:10 UNIT: [facility] ROOM: [facility] STUDY DESCRIPTION: CR Chest Single View Portable Attending Physician: Samira Brennan M.D. Ordering Physician: Samira Brennan M.D. Primary Care Physician: Primary Care Physician No MEDICAL IMAGING REPORT This report is preliminary unless electronic signature is present EXAM Portable chest HISTORY Central line placement today. FINDINGS Right IJ central line tip is in the right atrium 3 cm beyond the junction of the SVC and right atrium. No pneumothorax. Mild patchy infiltrate or atelectasis in the right base. Minimal right pleural effusion. Dictated by... Dash Gamino M.D. THIS IS AN ELECTRONICALLY VERIFIED REPORT Dash Gamino M.D. at 01/05/2017 11:44 PM TAMMIE/bonifacio TD: 01/05/2017 08:30 JOB #: [id number] MEDICAL IMAGING REPORT Page 1 of 1 COPY
--- NOTE | ~2017-01-04 | CO ---
Unit #: [id number] #: [id number] Patient: RIVKA CORDERO [id number] [address] [address] [id number] I MR#: [id number] NAME: RIVKA CORDERO ROOM: 241 Age: 21 Sex: F Admission Date: 01/04/2017 : 1995 Attending Physician: Mervat Javier M.D. Primary Care Physician: No Primary Care Physician Consultation Date: 01/15/2017 CONSULTATION REPORT REASON FOR CONSULTATION Followup. DISCUSSION Ms. Brannon is a 21-year-old female seen in room 241, bed 1 on January 15, 2017. Patient reports that she will be going home possibly today. Patient plans to check in at [facility] today. Patient is on pain pills by mouth. Patient denied any current suicidal or homicidal ideation. Denied any thoughts of harming self or others. Denied any psychotic symptoms. The patient's vitals were 98.6, 88, 15, 100/62, oxygen saturation 96%. REVIEW OF SYSTEMS A complete review of systems is unremarkable. MENTAL STATUS EXAMINATION General appearance: Patient dressed casually in hospital attire. Attention span and concentration fair. Speech: Regular rate, coherent. Oriented in time, place, and person. Mood and affect sad, dysphoric, anxious. Thought process is coherent. Thought content: The patient denied any thoughts of harming self or others. No new psychotic symptoms. Recent and remote memory fair. Language intact. Fund of knowledge fair. Insight and judgment fair to slightly impaired. DIAGNOSES PSYCHIATRIC: Opiate use disorder, severe, F11.20. Major depressive disorder, recurrent severe, F33.2. ASSESSMENT AND PLAN 1. Supportive psychotherapy and psychoeducation provided to patient. 2. Educated about benefits and side effects of medication and course and prognosis of illness. 3. Advised patient to follow up at [facility] and also given crisis line number [phone]. Dictated by.Iglesia Ocampo/patricia TD: 01/17/2017 13:06 JOB #: [id number] Unit #: [id number] #: [id number] Patient: RIVKA CORDERO CONSULTATION REPORT Page 1 of 1 X David Rubin MD CONSULTATION REPORT
--- NOTE | ~2017-01-04 | CO ---
Unit #: [id number] #: [id number] Patient: RIVKA CORDERO [id number] [place] [address] [facility]. [place], [place] [address] [id number] I MR#: [id number] NAME: RIVKA CORDERO ROOM: 241 Age: 21 Sex: F Admission Date: 01/04/2017 : 1995 Attending Physician: Samira Brennan M.D. Consultation Date: 01/08/2017 CONSULTATION REPORT ADDENDUM The patient is a 21-year-old female, who presented to [facility] on 01/04/2017 with right flank pain. She was found to have E coli in the urine and has been on IV antibiotics since admission. A CT scan of the chest revealed possible septic emboli to the right lower lobe as well as infiltrate and consolidation. The patient underwent an abdominal CT scan on 01/06/2017, which showed increased infiltrate and consolidation involving the right lower lobe and also showed a right effusion that seemed to be somewhat loculated. The patient also has a history of IV heroin and IV methamphetamine abuse. She also gives a history of smoking about one pack of cigarettes per day times about 12 years. On examination, she was found to have decreased breath sounds in the right lower chest. I plan at this point to proceed with insertion of a right chest tube to see if we can get the pleural fluid to drain while continuing on IV antibiotics for her right lower lobe pneumonia and possible pyelonephritis. Dictated by... Iglesia Crowe/shantel TD: 01/09/2017 19:13 JOB #: [id number] CONSULTATION REPORT Page 1 of 1 X Rafal English MD X CONSULTATION REPORT
--- NOTE | ~2017-01-04 | CO ---
Unit #: [id number] #: [id number] Patient: RIVKA CORDERO [id number] [place] [id number] [facility]. [place], [place] [address] [id number] I MR#: [id number] NAME: RIVKA CORDERO ROOM: 46 Age: 21 Sex: F Admission Date: 01/04/2017 : 1995 Attending Physician: Samira Brennan M.D. Primary Care Physician: No Primary Care Physician Consultation Date: 01/04/2017 CONSULTATION REPORT REASON FOR CONSULTATION Muscle endocarditis. HISTORY OF PRESENT ILLNESS Ms. Cordero is a 21-year-old -[place] female with a history of IV drug use who is admitted for complaints of back pain. At this point grandmother is at the bedside who is a poor historian and Ms. Cordero is not fully cooperative with exam. We are discussing current situations so exam is very limited. Although she does admit to history of IV drug use. She is also complaining of back pain, which she has had for about three months, told that she has had this untreated UTI although she never sought any type of treatment for it. Upon admission, UA was positive with 100 to 200 white blood cells, 4+ bacteria, 2+ leukocyte esterase, nitrate positive, and trace protein. Currently blood cultures and urine cultures are all pending. Patient remains afebrile and white count is normal at 10.2. We are now being asked to manage patient for endocarditis. PAST MEDICAL HISTORY Unable to obtain her records. It appears patient has not significant past medical history. REVIEW OF SYSTEMS Difficult to obtain. Patient's only current complaint is back pain, which is radiating around the thoracic side of her back. Denies any dysuria or blood in her urine. FAMILY HISTORY Noncontributory. SOCIAL HISTORY Patient is currently on IV heroin. Grandmother states she does not live with her and not sure where she lives. PHYSICAL EXAMINATION GENERAL: No apparent distress, moaning, difficult to awaken, although does attempt to answer questions appropriately. Resting in bed. VITAL SIGNS: Temperature is 98.3, heart rate is 121, respirations 22, blood pressure is 108/70. CARDIOVASCULAR: Tachycardic. PULMONARY: Clear to auscultation, nonlabored. GI: Soft, generalized tenderness, positive bowel sounds. SKIN: Is dry and intact. DIAGNOSTIC STUDIES Unit #: [id number] #: [id number] Patient: RIVKA CORDERO IMAGING STUDIES: None. LABORATORY DATA: Glucose is 107, BUN 12, creatinine 0.9, sodium 137, potassium 4.2, AST 102, ALT 174. Hematology - white count is 10.2, hemoglobin 13.2, platelets is 166. Urine and blood cultures are currently pending. ASSESSMENT 21-year-old female with a history of IV drug use with complaints of back pain. Will rule out any type of discitis. If blood cultures are positive, may need to consider MRI of backside to better evaluate. Will also rule out for also possible urinary tract infection. Cultures are currently pending. UA - white blood cells elevated. Elevated LFTs. Will check current HIV status, as well as hepatitis panel. Will continue vancomycin for any type of possible discitis or any positive blood cultures. Will add Gram-negative ko coverage with Rocephin for possible UTI. Depending on blood cultures and workup will determine if patient needs 2D echo. At this point no positive blood cultures and will await final cultures for any further recommendations. Will discuss patient with MD and further recommendations to come from Dr. Infante. Thank you for consultation. Dictated by... Mackenzie Webster APRN for Iglesia Craig/gonzales TD: 01/04/2017 09:38 JOB #: [id number] CONSULTATION REPORT Page 1 of 1 X X CONSULTATION REPORT
--- NOTE | ~2017-01-04 | CR72 ---
[facility] A Service of [facility] & [facility] RADIOLOGY TEXT RESULTS PATIENT: RIVKA CORDERO LOCATION: C2A 241- : [birth year] UNIT #: [id number] AGE: [address]: Samira Brennan MD SEX: F ORDER DR: [id number] [facility] [address] [facility]. [place], [place] [address] [id number] I MR#: [id number] Acc #: [id number] NAME: RIVKA CORDERO : 1995 SEX: F STUDY DATE/TIME: 01/08/2017 14:34 UNIT: [facility] ROOM: [facility] STUDY DESCRIPTION: CR Chest Single View Portable Attending Physician: Samira Brennan M.D. Ordering Physician: Rafal English M.D. Primary Care Physician: No Primary Care Physician MEDICAL IMAGING REPORT This report is preliminary unless electronic signature is present EXAM Chest, portable single view. CLINICAL HISTORY chest tube placement. pleural effusion FINDINGS Moderately large right pleural effusion. Right chest tube tip overlies the lateral right base. Patchy air densities in the right lower lung could be secondary to a partly aerated right lower lobe or partly loculated hydropneumothorax. Mild mediastinal shift to the left. Mild linear atelectasis or scarring in the left base. Right IJ central line tip in the right atrium 2 cm beyond the junction of SVC and right atrium. Dictated by... Dash Gamino M.D. THIS IS AN ELECTRONICALLY VERIFIED REPORT Dash Gamino M.D. at 01/08/2017 9:21 PM TAMMIE/domenic TD: 01/08/2017 20:48 JOB #: [id number] MEDICAL IMAGING REPORT Page 1 of 1 COPY
--- NOTE | ~2017-01-04 | CT4 ---
[facility] A Service of [facility] & [place] [facility] RADIOLOGY TEXT RESULTS PATIENT: RIVKA CORDERO LOCATION: C[address] 241- : 93 UNIT #: [id number] AGE: [address]: Samira Brennan MD SEX: F ORDER DR: [id number] [facility] [address] [place], [place] [address] [id number] I MR#: [id number] Acc #: [id number] NAME: RIVKA CORDERO : 1995 SEX: F STUDY DATE/TIME: 01/06/2017 17:35 UNIT: [facility] ROOM: 241 STUDY DESCRIPTION: CT Abd and Pelv Wo Cont Attending Physician: Samira Brennan M.D. Ordering Physician: Eitan Infante M.D. Primary Care Physician: Primary Care Physician No MEDICAL IMAGING REPORT This report is preliminary unless electronic signature is present EXAM CT abdomen and pelvis without contrast HISTORY Right flank pain for 3 days. Right back pain. FINDINGS CT abdomen and pelvis was performed without contrast. This CT exam was performed with one or more of the following radiation dose reduction techniques: Automatic exposure control, adjustment of mA and/or kV according to patient size, and iterative reconstruction. CT ABDOMEN: Moderate-sized right pleural effusion with extensive atelectasis or consolidation in the right lower lobe and, to a lesser degree in the partly visualized right middle lobe. There is also mild atelectasis in the posterior left lower lobe. Mild gallbladder wall thickening could be due to edema or inflammation. No gallbladder distension or biliary dilatation. Idnoougvpi-so-jtvw splenic enlargement measuring 13 cm in length. The pancreas, kidneys, and adrenal glands are normal. No bowel dilatation. No ascites. No urinary calculi or obstruction. CT PELVIS: Normal appendix. Small amount of free fluid in the pelvis is probably physiologic. The uterus and adnexa are unremarkable. Urinary bladder is normal. IMPRESSION 1. No urinary calculi or obstruction. 2. Moderate-sized right pleural effusion and trace left pleural effusion with extensive atelectasis or consolidation in the inferior right lower lobe and moderate infiltrate or atelectasis in the right middle lobe and mild atelectasis posterior left lower lobe. 3. Mild gallbladder wall thickening could be due to edema or STS. [facility] A Service of [facility] & [place] [facility] RADIOLOGY TEXT RESULTS PATIENT: RIVKA CORDERO LOCATION: [facility] 241-01 : [birth year] UNIT #: [id number] AGE: [address]: Samira Brennan MD SEX: F ORDER DR: inflammation, but there is no gallbladder distension and no biliary dilatation. 4. Nnnknqcejr-fm-okyo splenic enlargement. 5. No bowel obstruction. Dictated by... Dash Gamino M.D. THIS IS AN ELECTRONICALLY VERIFIED REPORT Dash Gamino M.D. at 01/07/2017 11:21 PM DFL/aaron TD: 01/06/2017 23:23 JOB #: [id number] MEDICAL IMAGING REPORT Page 1 of 1 COPY
--- NOTE | ~2017-01-04 | CO ---
Unit #: [id number] #: [id number] Patient: RIVKA CORDERO [id number] [address] [place], [place] [address] [id number] I MR#: [id number] NAME: RIVKA CORDERO ROOM: [facility] Age: 21 Sex: F Admission Date: 01/04/2017 : 1995 Attending Physician: Samira Brennan M.D. Primary Care Physician: No Primary Care Physician Consultation Date: 01/04/2017 CONSULTATION REPORT REASON FOR CONSULT ICU management. HISTORY OF PRESENT ILLNESS This is a 21-year-old female with past medical history significant for IV drug abuse who presented to the emergency room last night with right-sided severe pain. The patient currently is in tears and unable to provide detailed history. Per Dr. Brennan, who evaluated her before ga, the patient stated that she has been hurting for weeks but got much worse last night. The patient denied any fever. She feels nauseated, but she denied any vomiting or diarrhea. The patient is an IV heroin and methamphetamine user. PAST MEDICAL HISTORY Recurrent UTI. ALLERGIES No known drug allergies. HOME MEDICATIONS None. SOCIAL HISTORY The patient smokes 1 pack of cigarettes daily. She uses IV heroin and methamphetamine. No history of alcohol abuse. FAMILY HISTORY Hypertension. PAST SURGICAL HISTORY None. REVIEW OF SYSTEMS Unable to obtain fully from the patient, but mainly she is focusing on her right-sided pain. PHYSICAL EXAMINATION GENERAL: The patient is uncooperative, in tears from pain. VITAL SIGNS: Blood pressure is 85/54, respiratory rate 23, O2 saturation 100%. HEENT: Atraumatic, normocephalic. PERRLA, EOMI. NECK: Supple. No JVD. No lymphadenopathy. CHEST: Fine rhonchi at the right lower base. HEART: S1, S2. No murmur, gallops or rubs. Unit #: [id number] #: [id number] Patient: RIVKA CORDERO ABDOMEN: Soft but tender to light palpation. No hepatosplenomegaly. EXTREMITIES: No edema or cyanosis. SKIN: No rashes. [employer]ARD [employer]: Awake, alert, oriented x3. No focal motor/sensory deficits. LABS AND OTHER TESTS LABS: Creatinine 0.9, CO2 29. White blood count 10.2. IMAGING: CT angiogram is consistent with pneumonia (+/-) septic emboli. ASSESSMENT 1. Septic shock. 2. Pneumonia. 3. Pyelonephritis. 4. Rule out cholecystitis. 5. IV drug abuse. PLAN 1. Patient is critical. She will be transferred to ICU for further evaluation and management. 2. IV fluids per sepsis guidelines. 3. IV pressers if needed. Will add midodrine at this point. 4. Broad-spectrum antibiotics. Will add tobramycin. 5. Right upper quadrant ultrasound to rule out cholecystitis. 6. Pain management. 7. DVT and GI prophylaxis. NOTE: I would like to thank Dr. Brennan for allowing me to be part of this patient's care. Dictated by... Valentine Novoa M.D. EA/justyna TD: 01/04/2017 14:17 JOB #: [id number] CONSULTATION REPORT Page 1 of 1 X VALENTINE BEATTY MD X CONSULTATION REPORT
--- NOTE | ~2017-01-04 | CR72 ---
[facility] A Service of [facility] & [facility] RADIOLOGY TEXT RESULTS PATIENT: RIVKA CORDERO LOCATION: C2A 241-01 : [birth year] UNIT #: [id number] AGE: [address]: Mervat Javier MD SEX: F ORDER DR: [id number] [facility] [address] [place], [place] [address] [id number] I MR#: [id number] Acc #: [id number] NAME: RIVKA CORDERO : 1995 SEX: F STUDY DATE/TIME: 01/13/2017 5:40 UNIT: C2A ROOM: [facility] STUDY DESCRIPTION: CR Chest Single View Portable Attending Physician: Mervat Javier M.D. Ordering Physician: Rafal English M.D. Primary Care Physician: Primary Care Physician No MEDICAL IMAGING REPORT This report is preliminary unless electronic signature is present EXAM Frontal chest 01/13/2017 INDICATION Chest tube placement in a 21-year-old female. Right-sided effusion. Symptoms 9 days. History of drug abuse. Short of air. Flank pain on the right. TECHNIQUE Frontal chest compared with 01/12/2017. FINDINGS Right-sided central line unchanged. Cardiac silhouette stable. Vascularity unremarkable. Improving appearance of opacities in the left lung base. Residual trace to small left effusion. There is a right-sided chest tube present. There is a band-like opacity in the right lung base favored to represent atelectasis. Trace right-sided effusion and volume loss on the right. There is redemonstration of a small right sided pneumothorax. The basilar component is better demonstrated than on the prior study and there is a small apical component. The appearance is similar to the prior study for technical factors. IMPRESSION 1. Right-sided chest tube remains present. There is a small right-sided pneumothorax better demonstrated than on the prior study with a right-sided effusion. Probable right base atelectasis. 2. Left lung demonstrates improved appearance of opacities in the left lung base with a residual trace to small left effusion. STAT * RESULT [facility] A Service of [facility] & [facility] RADIOLOGY TEXT RESULTS PATIENT: RIVKA CORDERO LOCATION: [facility] 241-01 : [birth year] UNIT #: [id number] AGE: [address]: Mervat Javier MD SEX: F ORDER DR: Dictated by... Freddie Clark M.D. THIS IS AN ELECTRONICALLY VERIFIED REPORT Freddie Clark M.D. at 01/13/2017 7:15 AM Roly TD: 01/13/2017 06:57 JOB #: [id number] MEDICAL IMAGING REPORT Page 1 of 1 COPY
--- NOTE | ~2017-01-04 | CR72 ---
[facility] A Service of [facility] & [facility] RADIOLOGY TEXT RESULTS PATIENT: RIVKA CORDERO LOCATION: C2A 241-01 : [birth year] UNIT #: [id number] AGE: [address]: Mervat Javier MD SEX: F ORDER DR: [id number] [facility] [address] [place], [place] [address] [id number] I MR#: [id number] Acc #: [id number] NAME: RIVKA CORDERO : 1995 SEX: F STUDY DATE/TIME: 01/12/2017 5:31 UNIT: A ROOM: [facility] STUDY DESCRIPTION: CR Chest Single View Portable Attending Physician: Mervat Javier M.D. Ordering Physician: Rafal English M.D. Primary Care Physician: Primary Care Physician No MEDICAL IMAGING REPORT This report is preliminary unless electronic signature is present EXAM Portable AP view of the chest COMPARISON January 10, 2017, January 09, 2017, January 08, 2017. INDICATION 21-year-old female with right side pneumothorax. Follow up of indwelling chest tube. Right pleural effusion for 8 days. Current dyspnea. FINDINGS/IMPRESSION Right internal jugular catheter is again noted with the tip terminating in the high right atrium. Consideration of retraction recommended. Minimal left basilar atelectasis and/or trace pleural effusion is stable. There is stable band-like opacity in the right lung base favoring atelectasis. There appears to be a small right lateral pneumothorax on comparison exam and today, this appears to be more filled in with fluid but there may be still a small hydropneumothorax on the right. The right thoracostomy tube side port is just within the thoracic cage, grossly stable in comparison with yesterday. The tube is basilarly oriented. Dictated by... Darron Fishman M.D. THIS IS AN ELECTRONICALLY VERIFIED REPORT Darron Fishman M.D. at 01/15/2017 11:23 AM ROBBIE/bonifacio TD: 01/12/2017 12:39 JOB #: [id number] [facility] A Service of [facility] & [facility] RADIOLOGY TEXT RESULTS PATIENT: RIVKA CORDERO LOCATION: [place] [address]- : [birth year] UNIT #: [id number] AGE: [address]: Mervat Javier MD SEX: F ORDER DR: MEDICAL IMAGING REPORT Page 1 of 1 COPY
--- NOTE | ~2017-01-04 | CT16 ---
[facility] RADIOLOGY TEXT RESULTS PATIENT: RIVKA CORDERO LOCATION: [address] : [birth year] UNIT #: [id number] AGE: [address]: Samira Brennan MD SEX: F ORDER DR: [id number] [facility] [address] [place], [place] [address] [id number] MR#: [id number] Acc #: [id number] NAME: RIVKA CORDERO : 1995 SEX: F STUDY DATE/TIME: 01/04/2017 0539 UNIT: [facility] ROOM: [id number] STUDY DESCRIPTION: CT Angio Chest for PE Attending Physician: Samira Brennan M.D. Ordering Physician: Reagan Townsend M.D. Primary Care Physician: No Primary Care Physician MEDICAL IMAGING REPORT This report is preliminary unless electronic signature is present EXAM Chest CTA, 01/04 at 0539. INDICATION Heroin abuse. Right side pain since yesterday. TECHNIQUE Axial images were obtained through the chest following IV contrast administration. 3-D reformats were obtained. This CT exam was performed with one or more of the following radiation dose reduction techniques: automatic exposure control, adjustment of mA and/or kV according to patient size, and iterative reconstruction. COMPARISON No comparison CT. FINDINGS No aortic dissection. Study is essentially nondiagnostic for determination of pulmonary embolism due to poor bolus timing. Trace pleural fluid on the right. No definite adenopathy. Dense infiltrate noted in the right lower lobe. This is multifocal. Pulmonary infarct is in the differential diagnosis but this is more likely pneumonia or due to septic emboli. The left lung is clear. Upper abdomen demonstrates splenomegaly. IMPRESSION 1. No aortic dissection. The exam is essentially nondiagnostic for evaluation of pulmonary embolism due to bolus timing. Consider repeat examination if renal function permits or a V/Q scan. 2. Trace right pleural effusion. 3. Dense consolidation in the right lower lobe which is multifocal. This is probably due to pneumonia or septic emboli. Pulmonary [facility] A Service [facility] RADIOLOGY TEXT RESULTS PATIENT: RIVKA CORDERO LOCATION: [address] : [birth year] UNIT #: [id number] AGE: [address]: Samira Brennan MD SEX: F ORDER DR: infarct is in the differential diagnosis but is felt to be less likely given the patient's history. The left lung is clear. Dictated by... Reagan Mitchell Jr., M.D. THIS IS AN ELECTRONICALLY VERIFIED REPORT Reagan Mitchell Jr., M.D. at 01/05/2017 5:53 AM KAYLA/inez TD: 01/04/2017 10:31 JOB #: [id number] MEDICAL IMAGING REPORT Page 1 of 1 COPY
[2017-01-04 03:44] LABS: URINE SOURCE CLEAN CATCH
[2017-01-04 03:48] LABS: URINE APPEARANCE CLOUDY; URINE BILIRUBIN NEG (NEG); URINE BLOOD NEG (NEG); URINE COLOR YELLOW; URINE GLUCOSE NEG (NEG); URINE KETONE NEG (NEG); URINE LEUKOCYTE ESTERASE 2+ (NEG); URINE NITRATE POS (NEG); URINE PH 5.5 (5-8); URINE PROTEIN TRACE (NEG); URINE SPECIFIC GRAVITY 1.018 (1.003-1.035)
[2017-01-04 03:51] LABS: CULTURE INDICATED? YES; URBCS1 AUWI 0-2 /[HPF] (0-2); URINE BACTERIA AUWI 4+ (NEGATIVE); URINE SQUAMOUS EPITHELIAL CELL OCC /[HPF]; UWBCS1 AUWI 100-200 (0-5)
[2017-01-04 04:06] LABS: AMPHETAMINE POS (NEG); BARBITURATES NEG (NEG); BENZODIAZEPINES NEG (NEG); COCAINE NEG (NEG); MARIJUANA NEG (NEG); OPIATES POS (NEG); TRICYCLIC ANTIDEPRESSANTS NEG (NEG); U METHADONE NEG (NEG)
[2017-01-04 04:09] LABS: URINE MUCUS PRESENT
[2017-01-04 04:23] LABS: BASOPHIL# 0.1 X10e3 (0-0.3); BASOPHIL% 0.7 % (0-2.5); EOSINOPHIL# 0.1 X10e3 (0-0.7); EOSINOPHIL% 0.7 % (0.0-7.0); HEMATOCRIT 39.1 % (35.0-45.0); HEMOGLOBIN 13.2 gm/dL (12.0-16.0); LYMPHOCYTE# 1.6 X10e3 (1.0-3.5); LYMPHOCYTE% 16.2 % (17.0-45.0); MEAN CELL VOLUME 91.4 FL (83-96); MEAN CORPUSCULAR HEMOGLOBIN 30.8 PG (28-34); MEAN CORPUSCULAR HGB CONC 33.7 g/dL (30-36); MEAN PLATELET VOLUME 8.1 FL (6.5-11.5); MONOCYTE# 0.8 X10e3 (0-1.0); MONOCYTE% 8.2 % (3.0-12.0); NEUTROPHIL# 7.5 X10e3 (1.5-7.1); NEUTROPHIL% 74.2 % (40-75); PLATELET COUNT 166 X10e3 (140-420); RED BLOOD COUNT 4.28 X10e (3.90-5.30); RED CELL DISTRIBUTION WIDTH 12.3 % (11.0-15.5); WHITE BLOOD COUNT 10.2 X10e3 (4.0-10.5)
[2017-01-04 04:28] LABS: DIFF IND NO
[2017-01-04 04:36] LABS: PARTIAL THROMBOPLASTIN TIME 33.7 SECONDS (23.5-31.3); PROTHROMBIN TIME (PATIENT) 10.7 SECONDS (10.0-11.7)
[2017-01-04 04:44] LABS: ALBUMIN SERUM 3.5 g/dL (3.5-5.0); BILIRUBIN, DIRECT 0.3 mg/dL (0.0-0.2); BILIRUBIN,INDIRECT 0.6 mg/dL (0.0-0.9); BILIRUBIN,TOTAL 0.9 mg/dL (0.2-2.0); BUN/CREATININE RATIO 13.33; CALCIUM SERUM 8.8 mg/dL (8.4-10.2); CREATININE SERUM 0.9 mg/dL (0.6-1.4); GLOM FILT RATE Estimated 90.2 mL/min (>60); POTASSIUM 4.2 mmol/L (3.5-5.1); PROTEIN TOTAL SERUM 7.2 g/dL (6.0-8.3)
[2017-01-05 04:22] LABS: HEMATOCRIT 33.7 % (35.0-45.0); HEMOGLOBIN 11.5 gm/dL (12.0-16.0); MEAN CELL VOLUME 91.4 FL (83-96); MEAN CORPUSCULAR HEMOGLOBIN 31.2 PG (28-34); MEAN CORPUSCULAR HGB CONC 34.2 g/dL (30-36); MEAN PLATELET VOLUME 8.3 FL (6.5-11.5); RED BLOOD COUNT 3.69 X10e (3.90-5.30); RED CELL DISTRIBUTION WIDTH 12.4 % (11.0-15.5); WHITE BLOOD COUNT 10.8 X10e3 (4.0-10.5)
[2017-01-05 05:09] LABS: ALBUMIN SERUM 2.6 g/dL (3.5-5.0); BILIRUBIN,TOTAL 0.9 mg/dL (0.2-2.0); CALCIUM SERUM 8.2 mg/dL (8.4-10.2); CREATININE SERUM 0.5 mg/dL (0.6-1.4); GLOM FILT RATE Estimated 136.4 mL/min (>60); POTASSIUM 3.9 mmol/L (3.5-5.1)
[2017-01-06 05:30] LABS: BASOPHIL% 0.4 % (0-2.5); EOSINOPHIL# 0.1 X10e3 (0-0.7); EOSINOPHIL% 1.3 % (0.0-7.0); HEMATOCRIT 32.2 % (35.0-45.0); HEMOGLOBIN 10.9 gm/dL (12.0-16.0); LYMPHOCYTE% 12.9 % (17.0-45.0); MEAN CELL VOLUME 91.2 FL (83-96); MEAN CORPUSCULAR HEMOGLOBIN 30.8 PG (28-34); MEAN CORPUSCULAR HGB CONC 33.8 g/dL (30-36); MEAN PLATELET VOLUME 8.2 FL (6.5-11.5); MONOCYTE# 0.8 X10e3 (0-1.0); NEUTROPHIL# 6.1 X10e3 (1.5-7.1); NEUTROPHIL% 75.4 % (40-75); PLATELET COUNT 159 X10e3 (140-420); RED BLOOD COUNT 3.53 X10e (3.90-5.30); RED CELL DISTRIBUTION WIDTH 12.4 % (11.0-15.5); WHITE BLOOD COUNT 8.1 X10e3 (4.0-10.5)
[2017-01-06 05:48] LABS: DIFF IND NO
[2017-01-06 05:58] LABS: ALBUMIN SERUM 2.1 g/dL (3.5-5.0); BILIRUBIN,TOTAL 0.6 mg/dL (0.2-2.0); BUN/CREATININE RATIO 8.57; CREATININE SERUM 0.7 mg/dL (0.6-1.4); GLOM FILT RATE Estimated 122.1 mL/min (>60); POTASSIUM 3.5 mmol/L (3.5-5.1); PROTEIN TOTAL SERUM 4.9 g/dL (6.0-8.3)
[2017-01-07 06:16] LABS: HEMATOCRIT 34.2 % (35.0-45.0); HEMOGLOBIN 11.4 gm/dL (12.0-16.0); MEAN CELL VOLUME 91.5 FL (83-96); MEAN CORPUSCULAR HEMOGLOBIN 30.6 PG (28-34); MEAN CORPUSCULAR HGB CONC 33.4 g/dL (30-36); MEAN PLATELET VOLUME 8.1 FL (6.5-11.5); RED BLOOD COUNT 3.73 X10e (3.90-5.30); RED CELL DISTRIBUTION WIDTH 12.7 % (11.0-15.5); WHITE BLOOD COUNT 7.7 X10e3 (4.0-10.5)
[2017-01-07 07:43] LABS: BUN/CREATININE RATIO 8.57; CREATININE SERUM 0.7 mg/dL (0.6-1.4); GLOM FILT RATE Estimated 122.1 mL/min (>60)
[2017-01-09 05:30] LABS: HEMATOCRIT 30.1 % (35.0-45.0); HEMOGLOBIN 10.3 gm/dL (12.0-16.0); MEAN CELL VOLUME 90.3 FL (83-96); MEAN CORPUSCULAR HEMOGLOBIN 30.8 PG (28-34); MEAN CORPUSCULAR HGB CONC 34.1 g/dL (30-36); MEAN PLATELET VOLUME 7.3 FL (6.5-11.5); RED BLOOD COUNT 3.33 X10e (3.90-5.30); RED CELL DISTRIBUTION WIDTH 12.8 % (11.0-15.5); WHITE BLOOD COUNT 5.7 X10e3 (4.0-10.5)
[2017-01-09 06:11] LABS: BUN/CREATININE RATIO 6.25; CALCIUM SERUM 7.7 mg/dL (8.4-10.2); CREATININE SERUM 0.8 mg/dL (0.6-1.4); POTASSIUM 3.3 mmol/L (3.5-5.1)
[2017-01-09 09:30] LABS: HA AB IGM (HEPPAN) Nonreactive (()); HB CORE AB IGM (HEPPAN) Nonreactive (Nonreactive); HB S AG (HEPPAN) Nonreactive (Nonreactive); HEP C AB (HEPPAN) Reactive (Nonreactive); HEP C AB SIGNAL TO CUTOFF 7.68 ratio (<1.00)
[2017-01-10 11:03] LABS: HEMATOCRIT 31.3 % (35.0-45.0); HEMOGLOBIN 10.5 gm/dL (12.0-16.0); MEAN CELL VOLUME 90.3 FL (83-96); MEAN CORPUSCULAR HEMOGLOBIN 30.4 PG (28-34); MEAN CORPUSCULAR HGB CONC 33.6 g/dL (30-36); MEAN PLATELET VOLUME 7.1 FL (6.5-11.5); RED BLOOD COUNT 3.46 X10e (3.90-5.30); RED CELL DISTRIBUTION WIDTH 12.8 % (11.0-15.5)
[2017-01-10 11:31] LABS: BUN/CREATININE RATIO 7.14; CALCIUM SERUM 8.5 mg/dL (8.4-10.2); CREATININE SERUM 0.7 mg/dL (0.6-1.4); GLOM FILT RATE Estimated 122.1 mL/min (>60); POTASSIUM 4.4 mmol/L (3.5-5.1)
[2017-01-11 05:09] LABS: HEMATOCRIT 30.5 % (35.0-45.0); HEMOGLOBIN 10.4 gm/dL (12.0-16.0); MEAN CELL VOLUME 89.5 FL (83-96); MEAN CORPUSCULAR HEMOGLOBIN 30.5 PG (28-34); MEAN PLATELET VOLUME 7.2 FL (6.5-11.5); RED BLOOD COUNT 3.41 X10e (3.90-5.30); RED CELL DISTRIBUTION WIDTH 12.6 % (11.0-15.5); WHITE BLOOD COUNT 6.7 X10e3 (4.0-10.5)
[2017-01-11 07:07] LABS: ALBUMIN SERUM 2.2 g/dL (3.5-5.0); BILIRUBIN,TOTAL 0.3 mg/dL (0.2-2.0); BUN/CREATININE RATIO 5.55; CALCIUM SERUM 8.4 mg/dL (8.4-10.2); CREATININE SERUM 0.9 mg/dL (0.6-1.4); GLOM FILT RATE Estimated 90.2 mL/min (>60); POTASSIUM 4.8 mmol/L (3.5-5.1); PROTEIN TOTAL SERUM 5.7 g/dL (6.0-8.3)
[2017-01-11 16:30] LABS: IRON SERUM 16 ug/dL (28-170); TOTAL IRON BINDING CAPACITY 214 ug/dL (269-535); TRANSFERRIN 153 mg/dL (192-382); TRANSFERRIN SATURATION 7 % (20-50)
[2017-01-12 06:57] LABS: MAGNESIUM 2.2 mg/dL (1.6-3.0)
[2017-01-13 07:36] LABS: MAGNESIUM 2.3 mg/dL (1.6-3.0); POTASSIUM 5.4 mmol/L (3.5-5.1)
[2017-01-13 11:15] LABS: HEMATOCRIT 31.7 % (35.0-45.0); HEMOGLOBIN 10.8 gm/dL (12.0-16.0); MEAN CELL VOLUME 88.4 FL (83-96); MEAN CORPUSCULAR HEMOGLOBIN 30.1 PG (28-34); MEAN CORPUSCULAR HGB CONC 34.1 g/dL (30-36); MEAN PLATELET VOLUME 7.2 FL (6.5-11.5); RED BLOOD COUNT 3.59 X10e (3.90-5.30); RED CELL DISTRIBUTION WIDTH 12.4 % (11.0-15.5); WHITE BLOOD COUNT 6.9 X10e3 (4.0-10.5)
[2017-01-13 11:44] LABS: BUN/CREATININE RATIO 12.22; CALCIUM SERUM 9.1 mg/dL (8.4-10.2); CREATININE SERUM 0.9 mg/dL (0.6-1.4); GLOM FILT RATE Estimated 90.2 mL/min (>60); POTASSIUM 5.4 mmol/L (3.5-5.1)
[2017-01-13 18:14] LABS: CALCIUM SERUM 9.1 mg/dL (8.4-10.2); CREATININE SERUM 1.1 mg/dL (0.6-1.4); GLOM FILT RATE Estimated 70.7 mL/min (>60); POTASSIUM 5.2 mmol/L (3.5-5.1)
[2017-01-14 05:35] LABS: HEMATOCRIT 29.8 % (35.0-45.0); HEMOGLOBIN 10.2 gm/dL (12.0-16.0); MEAN CELL VOLUME 88.3 FL (83-96); MEAN CORPUSCULAR HEMOGLOBIN 30.2 PG (28-34); MEAN CORPUSCULAR HGB CONC 34.1 g/dL (30-36); MEAN PLATELET VOLUME 7.3 FL (6.5-11.5); RED BLOOD COUNT 3.37 X10e (3.90-5.30); RED CELL DISTRIBUTION WIDTH 12.5 % (11.0-15.5); WHITE BLOOD COUNT 6.5 X10e3 (4.0-10.5)
[2017-01-14 07:03] LABS: BUN/CREATININE RATIO 12.22; CALCIUM SERUM 9.2 mg/dL (8.4-10.2); CREATININE SERUM 0.9 mg/dL (0.6-1.4); GLOM FILT RATE Estimated 90.2 mL/min (>60)
[2017-01-14 21:09] LABS: HEP C AB (HEPPAN) Reactive (Nonreactive)
[2017-01-15 06:55] LABS: BUN/CREATININE RATIO 17.5; CALCIUM SERUM 9.5 mg/dL (8.4-10.2); CREATININE SERUM 0.8 mg/dL (0.6-1.4); POTASSIUM 4.6 mmol/L (3.5-5.1)
[2017-01-15] MEDS ORDERED: LEVAQUIN750 MG PO (11:23)
[2017-01-15] MEDS ORDERED: FERROUS GLUCON324 MG PO (11:23)
[2017-01-15] MEDS ORDERED: B-121000 MC1 PO (11:24)
[2017-01-15] MEDS ORDERED: MOBIC15 MG PO (11:24)
== END 2017-01-15 12:44 | disposition home or self-care (01) | DRG 871 ==
LOC: CED 01:25 → C2A 06:29 → CEDOF 06:29 → CED 06:38 → CEDOF 06:38 → C4C 07:53 → CEDOF 07:53 → C4C 14:07 → CICCU2 14:07 → CICCU3 18:23 → C2A 01-05 13:54
PROVIDERS: Emergency Medicine; Internal Medicine; Internal Medicine Pulmonary Disease; Nurse Practitioner; Nurse Practitioner Family; Surgery
PROC: B24BYZZ Ultrasonography of Heart with Aorta using Other Contrast (ICD-10-PCS; 2017-01-04)
PROC: 02HV33Z Insertion of Infusion Device into Superior Vena Cava, Percutaneous Approach (ICD-10-PCS; 2017-01-04)
PROC: B548ZZA Ultrasonography of Superior Vena Cava, Guidance (ICD-10-PCS; 2017-01-04)
PROC: 0W9930Z Drainage of Right Pleural Cavity with Drainage Device, Percutaneous Approach (ICD-10-PCS; principal; 2017-01-08)
PROC: 3E0L3GC Introduction of Other Therapeutic Substance into Pleural Cavity, Percutaneous Approach (ICD-10-PCS; 2017-01-10)
PROC: 3E0L3GC Introduction of Other Therapeutic Substance into Pleural Cavity, Percutaneous Approach (ICD-10-PCS; 2017-01-11)
DX: A41.9 Sepsis, unspecified organism (principal); R65.21 Severe sepsis with septic shock; J86.9 Pyothorax without fistula; E43 Unspecified severe protein-calorie malnutrition; J90 Pleural effusion, not elsewhere classified; I38 Endocarditis, valve unspecified; J18.9 Pneumonia, unspecified organism; F11.20 Opioid dependence, uncomplicated; N17.9 Acute kidney failure, unspecified; F33.2 Major depressive disorder, recurrent severe without psychotic features; N10 Acute pyelonephritis; F15.20 Other stimulant dependence, uncomplicated; B17.10 Acute hepatitis C without hepatic coma; J98.11 Atelectasis; M54.9 Dorsalgia, unspecified; F17.210 Nicotine dependence, cigarettes, uncomplicated; R74.0 Nonspecific elevation of levels of transaminase and lactic acid dehydrogenase [LDH]; Z71.51 Drug abuse counseling and surveillance of drug abuser; B96.20 Unspecified Escherichia coli [E. coli] as the cause of diseases classified elsewhere; E87.6 Hypokalemia; E83.51 Hypocalcemia; D50.9 Iron deficiency anemia, unspecified; E87.5 Hyperkalemia; Z68.21 Body mass index [BMI] 21.0-21.9, adult
CPT/HCPCS: 36415; 71010; 71275; 74176; 76705; 80048; 80053; 80074; 80076; 80200; 80202; 80307; 81003; 82607; 83540; 83550; 83605; 83630; 83735; 84132; 84703; 85025; 85027; 85610; 85730; 86317; 86592; 86803; 87040; 87045; 87070; 87086; 87088; 87102; 87116; 87186; 87205; 87206; 87427; 87493; 87522; 87806; 87899; 88108; 88305; 93306; 96361; 96365; 96375; 99285; J0456; J0696; J1650; J1885; J1940; J2270; J2543; J2997; J3260; J3370; J3411; Q9967